=== PATIENT | male | born 2000 | race Caucasian/White ===

== ENCOUNTER 2024-02-19 21:58 | Emergency (ER) | payer OTHER, SELFPAY ==
[2024-02-19 22:00] VITALS: BP 141/99
[2024-02-19 22:27] VITALS: BMI 26.0
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
[2024-02-19] MEDS: ADACEL 0.5 ML IM (22:42)
--- NOTE | 2024-02-19 22:48 | EDRN ---
residential program worker was in to speak with pt. Pt says his goal of coming to the ED is to to get outpatient referrals to a therapist and get started on medication for depression. He does not want to 'go to a [facility] because I don't like them.' Crisis
working on plan of care for pt.
[2024-02-20 00:05] VITALS: BP 119/80
--- NOTE | 2024-02-20 00:42 | EDRN ---
terminal worker called and said [facility] will pick pt up between [id number] to take him to [place]. terminal worker informing pt now.
== END 2024-02-20 02:15 ==
LOC: EMR 21:58
PROVIDERS: EMERGENCY PHYSICIAN Student in an Organized Health Care Education/Training Program
DX: R45.851 Suicidal ideations (principal); S51.812A Laceration without foreign body of left forearm, initial encounter; X83.8XXA Intentional self-harm by other specified means, initial encounter; Z23 Encounter for immunization; Z91.52 Personal history of nonsuicidal self-harm
CPT/HCPCS: 99283; 90471; 90715